=== PATIENT | male | born 1985 | race African-American/Black ===

== ENCOUNTER 2020-05-09 23:32 | Emergency (ER) | payer OTHER, SELFPAY ==
--- NOTE | ~2020-05-09 | XR_ITS ---
EXAMINATION: XR ankle LT min 3V DATE: 05/10/2020 00:05 INDICATION: Anterior and lateral left ankle pain post fall TECHNIQUE: Anteroposterior, oblique, mortise, and lateral views of the left ankle were obtained. COMPARISON: None. FINDINGS: Alignment is normal. No fracture. Joint spaces are well maintained. No ankle joint effusion. Soft t issue swelling about the lateral malleolus and over the dorsal aspect of the midfoot. IMPRESSION: 1. No osseous abnormality. Reviewed, dictated and finalized at location A. R SAW MECHANIC IMPRESSION: 1. No osseous abnormality.
[2020-05-09 23:35] VITALS: BP 142/93; PULSE 97; RESP 15; TEMP 36.6; O2SAT 97
--- NOTE | 2020-05-10 00:51 | ED.LOWEXIN ---
HPI - Extremity Injury (Lower) General Chief Complaint: Extremity Injury, Lower Stated Complaint: twisted ankle Time Seen by Provider: 05/10/20 00:51 Source: patient Mode of arrival: ambulatory Limitations: no limitations History of Present Illness HPI Narrative: The patient is a 34 yo male who presents or evaluation of left ankle pain. 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 He did not fall, no head trauma. He reports pain with ambulation. Denies numbness. Pain is moderate and worse with movement. Related Data Allergies Allergy/AdvReac Type Severity Reaction Status Date / Time No Known Allergies Allergy Verified 05/09/20 23:38 Review of Systems Review of Systems: Narrative: CONSTITUTIONAL: Denies fever CARDIOVASCULAR: Denies chest pain RESPIRATORY: Denies cough or dyspnea. GASTROINTESTINAL: Denies abdominal pain SKIN: Denies rash MUSCULOSKELETAL: Denies back pain, reports left ankle NEUROLOGIC: Denies headache PMFSH Past Medical History Medical History No pertinent past medical history Surgical History Surgical History No pertinent past surgical history Social History Social History (Updated 05/10/20 @ 01:12 by Nancy Noble MD) Smoking status: Never smoker Alcohol intake: current Alcohol use details: social Substance use: never Gender identity (if verbalized by the patient): Male Exam Narrative: Exam Narrative: GENERAL: Awake, alert, conversant HEAD: Normocephalic, atraumatic. EYES: PERRLA and EOMI. ENT: Nares clear, no rhinorrhea or epistaxis. Mucous membranes moist. NECK: Supple. CHEST: No respiratory distress, breathing even and non labored HEART: Regular rate, sinus rhythm ABDOMEN:Non distended, non tender EXTREMITIES: Normal range of motion. Pain with flexion and extension, mild. No ecchymosis, mild edema. Tender to medial aspect. SKIN: Warm, dry, no rash. NEURO:No focal deficits. Alert and oriented x3 Course Vital Signs Vital signs: Vital Signs Temperature 36.6 C 05/09/20 23:35 Pulse Rate 97 05/09/20 23:35 Respiratory Rate 15 05/09/20 23:35 Blood Pressure 142/93 H 05/09/20 23:35 Pulse Oximetry 97 05/09/20 23:35 Temperature 36.6 C 05/09/20 23:35 Pulse Rate 97 05/09/20 23:35 Respiratory Rate 15 05/09/20 23:35 Blood Pressure 142/93 H 05/09/20 23:35 Pulse Oximetry 97 05/09/20 23:35 MDM - Extremity Injury (Lower) MDM Narrative Medical decision making narrative: Patient presented for evaluation of left ankle pain. At the time of assessment, patient is ambulatory. Neurologically intact. Neurovascularly intact. Patient is ambulatory. No significant deformity. Patient with negative x-ray imaging, will be discharged home in stable condition. Differential Diagnosis Differential diagnosis: Likely ankle sprain and strain and ankle fracture Imaging Data My impression: Left ankle: No acute osseous abnormality, no fracture or dislocation Discharge Plan Discharge Clinical Impression: Ankle sprain and strain Patient Disposition: Home, Self-Care Condition: Stable Instructions: Ankle Sprain (ED) Additional Instructions: You do not have any evidence of any broken bones or dislocation in your ankle. This is likely an ankle sprain and will resolve in 10 to 14 days. Please rest, ice and elevate the extremity is much as possible. You may experience some swelling, swelling is not dangerous. Please take anti-inflammatories such as Tylenol and ibuprofen. Please contact your primary care physician for follow up from this visit. If you experience worsening pain, vomiting that does not stop, bleeding complications, chest pain, shortness of breath, inability to tolerate your medications please return for reassessment. Take any prescribed medications Stay well-hydrated For fever and
== END 2020-05-10 02:04 | disposition home or self-care (01) ==
LOC: ANHED 05-10 01:27
PROVIDERS: Emergency Provider Emergency Medicine; PCP Nurse Practitioner Family
DX: S93.402A Sprain of unspecified ligament of left ankle, initial encounter (principal); S96.912A Strain of unspecified muscle and tendon at ankle and foot level, left foot, initial encounter; X50.9XXA Other and unspecified overexertion or strenuous movements or postures, initial encounter
CPT/HCPCS: 73610; 99283

== ENCOUNTER 2021-01-10 09:25 | Emergency (ER) | payer BC, SELFPAY ==
--- NOTE | ~2021-01-10 | XR_ITS ---
EXAMINATION: XR chest 2V DATE: 01/10/2021 10:20 INDICATION: Cough and fever TECHNIQUE: PA and lateral views of the chest are obtained. COMPARISON: None available FINDINGS: There are minimal airspace opacities lower lung zones. There is no pleural effusion or pneu mothorax. The cardiomediastinal silhouette is normal. The visualized bones and soft tissues are unrem arkable. IMPRESSION: 1. Minimal airspace opacities of the lower lung zones, consistent with atelectasis versus pneumonia. Reviewed, dictated and finalized at location A. IMPRESSION: 1. Minimal airspace opacities of the lower lung zones, consistent with atelecta sis versus pneumonia.
[2021-01-10 09:47] VITALS: BP 115/62; PULSE 104; RESP 20; TEMP 39.3; O2SAT 99
[2021-01-10 10:49] LABS: Basophils Percent Auto 0.2 % (0.2-1.2); Hematocrit 42.8 % (42.0-52.0); Hemoglobin 14.1 g/dL (14.0-18.0); Immature Granulocyte Absolute 0.03 K/mm3 (0.00-0.031); Immature Granulocyte Percent A 0.6 % (0-0.5); Lymphocytes Absolute Auto 1.22 K/mm3 (0.9-3.2); Lymphocytes Percent Auto 22.6 % (18.3-44.2); Mean Corpuscular HGB Conc 32.9 g/dl (32-36); Mean Corpuscular Hemoglobin 28.8 pg (26-34); Mean Corpuscular Volume 87.5 fl (80-100); Mean Platelet Volume 9.9 fl (7.4-10.4); Monocytes Absolute Auto 0.3 K/mm3 (0.1-0.6); Neutrophils Absolute Auto 3.9 K/mm3 (1.3-6.7); Neutrophils Percent Auto 71.6 % (45.5-73.1); Platelet Count Result 226 k/mm3 (150-375); Red Blood Count 4.89 M/mm3 (4.6-6.20); White Blood Count 5.4 K/mm3 (4.5-10.0)
[2021-01-10 10:52] LABS: Add Urine Microscopic? YES; Appearance Urine Clear (Clear); Bilirubin Urine Negative (Negative); Blood Urine Negative (Negative); Color Urine Yellow (Yellow); Glucose Urine UA 3+ mg/dL (Negative); Ketones Urine 1+ mg/dL (Negative); Leukocyte Esterase Ur Negative LEU/UL (Negative); Nitrate Urine Negative (Negative); Protein Urine 2+ mg/dL (Negative); RBC Urine 0-2 /hpf (0-2); WBC Urine 0-3 /hpf
[2021-01-10 11:00] LABS: INR 0.9; Prothrombin Time 12.2 Seconds (11.1-14.7)
[2021-01-10 11:01] LABS: Partial Thromboplastin Time 28.4 SECONDS (22.3-36.8)
[2021-01-10 11:04] LABS: Lactic Acid Reflex 1.2 mmol/L (0.7-2.1)
[2021-01-10 11:07] LABS: Alanine Aminotransferase 34 U/L (4-50); Albumin Level 4.1 g/dL (3.5-5.1); Alkaline Phosphatase 115 U/L (38-126); Anion Gap 7 mmol/L (8-16); Aspartate Amino Transferase 46 U/L (17-59); Bilirubin,Total 0.7 mg/dL (0.2-1.3); Blood Urea Nitrogen 11 mg/dL (9-20); CRP 4.2 mg/dL (<1.0); Calcium 9.5 mg/dL (8.4-10.2); Carbon Dioxide 26 mmol/L (22-30); Chloride 98 mmol/L (98-107); Estimated CRCL calculation 88 ml/min; Estimated Glomerular Filt Rate > 60; Glucose 332 mg/dL (65-110); Potassium 4.1 mmol/L (3.4-5.0); Sodium 131 mmol/L (137-145)
[2021-01-10 11:11] LABS: Specific Grav Ur 1.035 (1.001-1.035)
[2021-01-10 12:46] VITALS: BP 120/48; PULSE 97; RESP 18; TEMP 38; O2SAT 96
[2021-01-10] MEDS: ONDANSETRON INJ 4 MG/2 ML VIAL IV PUSH (14:05)
[2021-01-10] MEDS: BENZONATATE 100 MG CAPSULE PO (14:05)
[2021-01-10] MEDS: SODIUM CHLORIDE 0.9% IV 1,000 ML 999 ML IV CONT (14:05)
[2021-01-10] MEDS: ACETAMINOPHEN 500 MG TABLET 1000 MG PO (14:05)
--- NOTE | 2021-01-10 15:43 | ED.FEVER ---
HPI - Fever General Chief Complaint: Fever Stated Complaint: abdominal pain Time Seen by Provider: 01/10/21 13:26 History of Present Illness HPI Narrative: Patient presents with fever for the past few days. Is been associated with cough, congestion and body aches. Also reports some mild nausea and a stomachache. Denies any vomiting diarrhea sputum production. Reports mild shortness of breath. Patient is currently may have Covid but is unsure where he may have contracted it from Related Data Allergies Allergy/AdvReac Type Severity Reaction Status Date / Time No Known Allergies Allergy Verified 01/10/21 09:52 Review of Systems Review of Systems: CONSTITUTIONAL: Denies fever, chills, or sweats. EYES: Denies visual changes, redness, or discharge. ENT: Denies rhinorrhea, congestion, sore throat, or otalgia. CARDIOVASCULAR: Denies chest pain, palpitations, or edema. RESPIRATORY: Reports cough and shortness of breath GASTROINTESTINAL: Denies vomiting, or diarrhea. GENITOURINARY: Denies dysuria or hematuria. SKIN: Denies rash or itching. MUSCULOSKELETAL: Denies back pain, focal joint pain. NEUROLOGIC: Denies headache, numbness, dizziness, or weakness. PSYCHIATRIC: Denies anxiety or depression. All systems reviewed & are unremarkable except as noted in HPI and below PMFSH Past Medical History Medical History No pertinent past medical history Surgical History Surgical History No pertinent past surgical history Social History Social History Smoking status: Never smoker Alcohol intake: current Alcohol use details: social Substance use: never Gender identity (if verbalized by the patient): Male Exam Narrative: GENERAL: Well-appearing, well-nourished, and in no acute distress. HEAD: Normocephalic, atraumatic. EYES: PERRLA and EOMI. ENT: Nares clear, no rhinorrhea or epistaxis. Mucous membranes moist. NECK: Supple. No masses. No JVD CHEST: Clear to auscultation. No respiratory distress. No wheezes rales or rhonchi HEART: Regular rate and rhythm. No murmur heard. Normal peripheral pulses. ABDOMEN: Soft, nontender, nondistended, normal active bowel sounds. EXTREMITIES: Normal range of motion. No edema. SKIN: Warm, dry, no rash. NEURO: No focal deficits. Alert and oriented x3. PSYCH: Normal mood and affect. Course Reevaluation(s) Reevaluation #1: Patient reports feeling improved results and plan reviewed with patient is comfortable with outpatient plan. Date: 01/10/21 Time: 15:44 Vital Signs Vital signs: Vital Signs Temperature 39.3 C H 01/10/21 09:47 Pulse Rate 104 H 01/10/21 09:47 Respiratory Rate 20 01/10/21 09:47 Blood Pressure 115/62 01/10/21 09:47 Pulse Oximetry 99 01/10/21 09:47 Temperature 36.8 C 01/10/21 16:07 Pulse Rate 66 01/10/21 16:07 Respiratory Rate 16 01/10/21 16:07 Blood Pressure 124/77 01/10/21 16:07 Pulse Oximetry 100 01/10/21 16:07 MDM - Fever MDM Narrative Medical decision making narrative: H&P as above, vs initially with fever and tachycardia, pt looks clinically well, exam reassuring, labs reassuring img with possible pneumonia, additional labs/img considered, symptomatic relief available as needed, on reevaluation pt continues to looks clinically well. Suspect Covid pneumonia, dns severe sepsis, severe dehydration, hypoxia. plan to tx/monitor as op w/ pcm f/u findings/plan discussed with pt, pt agree/comfortable with plan, return precautions given Lab Data Result diagrams: 01/10/21 10:38 01/10/21 10:38 Labs: Lab Results 01/10/21 01/10/21 01/10/21 Range/Units 10:38 10:38 10:38 WBC 5.4 (4.5-10.0) K/mm3 RBC 4.89 (4.6-6.20) M/mm3 Hgb 14.1 (14.0-18.0) g/dL Hct 42.8 (42.0-52.0) % MCV 87.5 (80-100) fl MCH 28.8 (26-34
[2021-01-10 16:07] VITALS: BP 124/77; PULSE 66; RESP 16; TEMP 36.8; O2SAT 100
[2021-01-11 18:31] LABS: SARS-CoV-2 RNA PCR Positive
== END 2021-01-10 16:10 | disposition home or self-care (01) ==
PROVIDERS: Emergency Medicine; Emergency Provider Emergency Medicine; PCP Nurse Practitioner Family
DX: U07.1 COVID-19 (principal); J12.82 Pneumonia due to coronavirus disease 2019
CPT/HCPCS: 36415; 71046; 80053; 81001; 83605; 85025; 85610; 85730; 86140; 87040; 96361; 96374; 99284; A9270; C9803; J2405; J7030; U0003; U0005

== ENCOUNTER 2021-01-13 15:23 | Inpatient (IN) | payer BC, SELFPAY ==
[2021-01-13] VITALS (11 sets, daily range): BP systolic 110–153; BP diastolic 66–95; PULSE 88–110; RESP 18–30; TEMP 36.9; O2SAT 92–100
--- NOTE | ~2021-01-13 | CT_ITS ---
EXAMINATION: CTA chest PE protocol DATE: 01/13/2021 17:56 INDICATION: Shortness of breath, elevated d-dimer. Covid-positive. TECHNIQUE: Computed tomography angiography (CTA) of the chest was performed with 100 mL Omnipaque-350 intravenous contrast timed to evaluate the pulmonary arteries. Coronal maximum intensity projection 3D-reconstructions were created by the technologist. Automated exposure control and iterative reconst ruction technique were employed. Exam dose: 459.78 mGy-cm total exam DLP. COMPARISON: 01/13/2021 portable AP chest 01/10/2021 2 view chest FINDINGS: There is diagnostic contrast enhancement of the pulmonary arteries and no evidence of pulmo nary embolism. No thoracic aortic aneurysm or dissection. Normal heart size. No pericardial effusion. Slight pleural effusions. There is mild hilar and mediastinal lymph node prominence, likely reactive. Extensive bilateral patch y groundglass infiltrates are noted involving particularly the right upper lobe, middle lobe, lingula and both lower lobes. Included skeletal structures are unremarkable. IMPRESSION: No evidence of pulmonary embolism Extensive bilateral pulmonary infiltrates consistent with Covid pneumonia Reviewed, dictated and finalized at Location [facility]. Reviewed, dictated and finalized at location A.
--- NOTE | ~2021-01-13 | XR_ITS ---
EXAMINATION: XR chest 1V portable DATE: 01/13/2021 16:06 INDICATION: Shortness of breath. COVID-19 positive. TECHNIQUE: A single frontal view of the chest was obtained. COMPARISON: Chest 2 views 01/10/2021 FINDINGS: There are patchy airspace opacities in all right lung zones and in left mid and lower lung zones. No pleural effusion or pneumothorax. The heart size is normal. IMPRESSION: 1. Worsened diffuse lung disease, consistent with COVID-19 pneumonia. Reviewed, dictated and finalized at location B.
--- NOTE | 2021-01-13 15:47 | ECG_ITS ---
Measurements Intervals [place] Rate: 0 P: ID: 0 QRS: QRSD: 0 T: QT: 0 QTc: 0 Interpretive Statements SINUS RHYTHM BORDERLINE T WAVE ABNORMALITY- INFERIOR LEADS BASELINE ARTIFACT- I, II, III, AVR, V2-V6 BORDERLINE ECG Electronically Signed On 01-13-2021 15:54:13 CDT by Jatinder Mariscal D.O.
--- NOTE | 2021-01-13 16:46 | PC.NURSE ---
called lab to add on Trop @[id number]
[2021-01-13 16:53] LABS: Basophils Percent Auto 0.2 % (0.2-1.2); Hematocrit 40.5 % (42.0-52.0); Hemoglobin 13.1 g/dL (14.0-18.0); Immature Granulocyte Absolute 0.03 K/mm3 (0.00-0.031); Immature Granulocyte Percent A 0.5 % (0-0.5); Lymphocytes Percent Auto 25.5 % (18.3-44.2); Mean Corpuscular HGB Conc 32.3 g/dl (32-36); Mean Corpuscular Hemoglobin 28.9 pg (26-34); Mean Corpuscular Volume 89.2 fl (80-100); Mean Platelet Volume 10.1 fl (7.4-10.4); Monocytes Absolute Auto 0.3 K/mm3 (0.1-0.6); Monocytes Percent Auto 4.9 % (2.6-8.5); Neutrophils Absolute Auto 4.3 K/mm3 (1.3-6.7); Neutrophils Percent Auto 68.9 % (45.5-73.1); Platelet Count Result 320 k/mm3 (150-375); Red Blood Count 4.54 M/mm3 (4.6-6.20); Red Cell Distribution Width 12.1 % (11.5-14.5); White Blood Count 6.3 K/mm3 (4.5-10.0)
[2021-01-13 17:03] LABS: D Dimer 0.75 ug/mL (<0.48)
[2021-01-13 17:21] LABS: Troponin I < 0.012 ng/mL (0.000-0.034)
[2021-01-13 17:22] LABS: Alanine Aminotransferase 41 U/L (4-50); Alkaline Phosphatase 102 U/L (38-126); Anion Gap 7 mmol/L (8-16); Aspartate Amino Transferase 65 U/L (17-59); Bilirubin,Total 0.5 mg/dL (0.2-1.3); Blood Urea Nitrogen 10 mg/dL (9-20); Calcium 9.1 mg/dL (8.4-10.2); Carbon Dioxide 26 mmol/L (22-30); Chloride 99 mmol/L (98-107); Estimated Glomerular Filt Rate > 60; Glucose 217 mg/dL (65-110); Potassium 4.2 mmol/L (3.4-5.0); Sodium 132 mmol/L (137-145)
--- NOTE | 2021-01-13 17:45 | ED.GENADULT ---
HPI - General Adult General Chief complaint: Upper Respiratory Infection Stated complaint: SOB/COVID+ Time Seen by Provider: 01/13/21 15:23 Source: patient and RN notes reviewed History of Present Illness HPI narrative: Patient is a 35 y/o male complaining of moderate SOB and cough for 1 1/2 weeks. He states that exertion worsens his symptoms. He also has fever and chest pain. He tested positive for COVID 3 days ago. Related Data Allergies Allergy/AdvReac Type Severity Reaction Status Date / Time No Known Allergies Allergy Verified 01/13/21 15:30 Review of Systems Constitutional: Constitutional: Denies chills, Denies fever(s), Denies headache(s) and Denies weakness Eyes: Eyes: Denies blurry vision ENT: Denies headache(s) and Denies neck pain Cardiovascular: Cardiovascular: Reports chest pain and Reports dyspnea Respiratory: Respiratory: Reports cough and Reports dyspnea Gastrointestinal: Gastrointestinal: Denies abdominal pain, Denies diarrhea, Denies nausea and Denies vomiting Genitourinary: Genitourinary: Denies hematuria and Denies dysuria Musculoskeletal: Musculoskeletal: Denies back pain and Denies neck pain Neurologic: Denies headache(s) and Denies weakness PMFSH Past Medical History Medical History No pertinent past medical history Surgical History Surgical History No pertinent past surgical history Social History Social History Smoking status: Never smoker Alcohol intake: current Alcohol use details: social Substance use: never Gender identity (if verbalized by the patient): Male Exam Const: General: no acute distress and well developed Orientation/consciousness: oriented to person, oriented to place, oriented to time and patient oriented x3 HENMT: Head: normocephalic Ears: external ears normal General nose exam: Normal external nose present Eyes: General: appearance normal, both eyes and all related structures Conjunctivae: conjunctivae normal Neck: Neck: normal visual inspection and full ROM Chest: Chest palpation & inspection: normal inspection of the chest and no tenderness Resp: Effort & Inspection: normal respiratory effort Auscultation: clear to auscultation bilaterally Cardio: Rate: regular rate Rhythm: regular rhythm GI: GI Palp: No abdominal tenderness and Yes Soft to palpation Skin: General skin exam: normal color and turgor normal Neuro: General: oriented to person, oriented to place, oriented to time and patient oriented x3 Cognition (Neuro): normal cognition Extrem: General: normal to inspection, full ROM and no pedal edema Psych: Appearance: grossly normal Mental Status: mental status grossly normal Affect: normal affect Course Consultations Consultation #1: Discussed with Dr. Medrano, who agrees to admit. Date: 01/13/21 Time: 20:48 Vital Signs Vital signs: Vital Signs Temperature 36.9 C 01/13/21 15:19 Pulse Rate 96 01/13/21 15:19 Respiratory Rate 20 01/13/21 15:19 Blood Pressure 131/80 01/13/21 15:19 Pulse Oximetry 96 01/13/21 15:19 Temperature 36.9 C 01/13/21 15:19 Pulse Rate 96 01/13/21 20:25 Respiratory Rate 24 H 01/13/21 20:25 Blood Pressure 116/69 01/13/21 20:25 Pulse Oximetry 100 01/13/21 20:25 Medical Decision Making Vital Signs Vital Signs: Vital Signs Temperature 36.9 C 01/13/21 15:19 Pulse Rate 96 01/13/21 15:19 Respiratory Rate 20 01/13/21 15:19 Blood Pressure 131/80 01/13/21 15:19 Pulse Oximetry 96 01/13/21 15:19 Temperature 36.9 C 01/13/21 15:19 Pulse Rate 96 01/13/21 20:25 Respiratory Rate 24 H 01/13/21 20:25 Blood Pressure 116/69 01/13/21 20:25 Pulse Oximetry 100 01/13/21 20:25 Lab Data Result diagrams: 01/13/21 16:16 01/13/21 16:16 Labs: Lab Results
--- NOTE | 2021-01-13 19:15 | PC.NURSE ---
Report given to YEISON Lozano
--- NOTE | 2021-01-13 20:54 | PM.IMHP ---
H&P: HPI History of Present Illness Date/Time: 01/13/21 20:54 Chief Complaint: Cough and shortness of breath Narrative: This is a 35-year-old male with no significant past medical history that presented to the emergency room due to worsening shortness of breath ,cough productive of yellowish sputum, nausea, vomiting, diarrhea, generalized malaise ,fevers and chills ,poor appetite, patient had tested positive for COVID roughly a week ago and had presented to the emergency room 2 days ago due to nausea and vomiting was given Zofran and discharged home however returned to the emergency room due to worsening of symptoms. Preliminary workup was significant for CT PE protocol with diffuse infiltrates but no acute pulmonary emboli. Review of Systems Review of Systems: Patient presented to emergency room due to nausea, vomiting, cough productive of sputum, shortness of breath generalized malaise fevers and chills Constitutional: Constitutional: Reports chills, Reports fever(s) and Reports malaise Eyes: Eyes: Denies change in vision ENT: Denies dysphagia, Denies nasal congestion, Denies nasal discharge and Denies nasal obstruction Cardiovascular: Cardiovascular: Denies irregular heart rhythm, Denies lightheadedness, Denies radiating jaw, neck or arm pain, Denies palpitations and Denies dyspnea on exertion Respiratory: Respiratory: Reports cough, Reports excessive phlegm production and Reports dyspnea Gastrointestinal: Gastrointestinal: Denies abdominal pain, Reports nausea and Reports vomiting Genitourinary: Genitourinary: Reports no additional male genitourinary complaints Musculoskeletal: Musculoskeletal: Reports myalgias Integumentary/Breasts: Skin/Breast: Reports system reviewed and no additional complaints, except as docu Neurologic: Reports system reviewed and no additional complaints, except as documented Psychiatric: Psychiatric: Reports no additional psychiatric complaints Endocrine: Endocrine: Reports no additional endocrine complaints Hematologic/Lymphatic: Hematologic/Lymphatic: Reports no additional hematologic/lymphatic complaints Allergic/Immunologic: Allergic/Immunologic: Reports no additional allergic/immunologic complaints PMFSH Past Medical History Medical History No pertinent past medical history Surgical History Surgical History No pertinent past surgical history Social History Social History Smoking status: Never smoker Alcohol intake: current Alcohol use details: social Substance use: never Gender identity (if verbalized by the patient): Male Meds Home Medications and Allergies Home Medications Medication Instructions Recorded Confirmed Type ondansetron 4 mg PO Q8H PRN #10 tablet 01/10/21 Rx Allergies Allergy/AdvReac Type Severity Reaction Status Date / Time No Known Allergies Allergy Verified 01/13/21 15:30 Vital Signs Vital Signs - 24 hr 01/13/21 15:19 01/13/21 16:30 01/13/21 17:30 Temperature 98.4 F Pulse Rate 96 88 91 Respiratory Rate 20 20 22 H Blood Pressure 131/80 116/83 113/69 Pulse Oximetry 96 96 96 01/13/21 18:30 01/13/21 20:25 Temperature Pulse Rate 89 96 Respiratory Rate 20 24 H Blood Pressure 118/68 116/69 Pulse Oximetry 95 100 Exam Narrative: Laying in [facility] Const: General: cooperative, comfortable, no acute distress, well developed, alert, awake and ill appearing acutely Nutritional Appearance: average body habitus Orientation/consciousness: patient oriented x3 HENMT: Head: normal to inspection, normocephalic and atraumatic Ears: hearing grossly normal bilaterally General nose exam: Normal external nose present Face and sinus: normal facial exam Mouth: Yes Normal oral and palatal mucosa present Eyes: General: appearance normal, both eyes and all related structures
[2021-01-13] MEDS: DEXAMETHASONE SOD PHOS INJ 4 MG/ML VIAL 6 MG IV PUSH (21:01)
[2021-01-13] MEDS: SODIUM CHLORIDE 0.9% IV 250 ML 30 ML IV CONT (22:51)
[2021-01-13 23:28] LABS: INR 0.9
[2021-01-13 23:30] LABS: Alanine Aminotransferase 37 U/L (4-50); Estimated Glomerular Filt Rate > 60
[2021-01-14] VITALS (13 sets, daily range): BP systolic 119–153; BP diastolic 60–86; PULSE 83–101; RESP 18–30; TEMP 35.9–36.8; O2SAT 92–97; BMI 30.6
[2021-01-14] MEDS: REMDESIVIR 200 MG/NS 250 ML 200 MG/250 ML BAG 250 MG IVPB (01:02)
--- NOTE | 2021-01-14 01:30 | PC.NURSE ---
This patient, Jeremiah Brooks, was admitted to 3 [facility] Surg Room 328-01 @0125. Patient/family oriented to hospital policies and general routines including ID bracelet, bed and alarms, visiting hours, pain management, procedures, bathroom and other care routines, personal items, smoking policy, room service/diet, and visiting hours. Information on how to activate the Rapid Response Team has been discussed. Patient/Family are encouraged to report perceived risks to care and to ask questions if they do not understand what they are told or what they should do.
[2021-01-14] MEDS: BENZONATATE 100 MG CAPSULE 200 MG PO (03:10)
[2021-01-14 07:12] LABS: INR 0.9; Prothrombin Time 12.2 Seconds (11.1-14.7)
[2021-01-14 07:21] LABS: Alanine Aminotransferase 36 U/L (4-50); Estimated CRCL calculation 134 ml/min; Estimated Glomerular Filt Rate > 60
--- NOTE | 2021-01-14 07:22 | PM.IMPN ---
Progress Note: A&P Assessment and Plan (1) Pneumonia due to 2019-nCoV: Code(s): U07.1 - COVID-19; J12.82 - Pneumonia due to coronavirus disease 2019 Status: Acute Assessment and Plan: He is symptomatic with shortness of breath. His chest CT does show bilateral airspace disease which is ground-glass opacities. He is not requiring any oxygen but considering lung involvement of will go ahead and start him on dexamethasone 6 mg IV once a day. He is out of the window for remdisivir and will stop it. He does not seem to have any bacterial infection. I will stop azithromycin and ceftriaxone. Will send sputum culture and check procalcitonin level. Incentive spirometry. Encourage activity. Out of bed to chair. I have encouraged him to lie in the prone position or side-lying if tolerated. Oxygen inhalation only if oxygen saturation is less than 90%. (2) DVT prophylaxis: Code(s): Z29.9 - Encounter for prophylactic measures, unspecified Status: Acute Assessment and Plan: I will decrease his Lovenox to once a day dosing. Additional Plan Full code Subjective Date/time seen: 01/14/21 07:22 His symptoms started around 8 with cough and upper respiratory symptoms. He was tested positive for COVID-19 on 01/10. He is still complaining of shortness of breath with exertion on the area. He does have some cough with brownish phlegm. He denied have any chest pain and fever and chills. He denied have any nausea vomiting or abdominal pain. Review of Systems Review of Systems: All systems reviewed & are unremarkable except as noted in HPI and below Exam Narrative: General awake and alert not in acute distress Neck supple CVS S1-S2 no murmur Respiratory no wheezes or crepitation respiration nonlabored GI soft nontender nondistended no hepatosplenomegaly Chest wall no tenderness or deformity Back nontender no deformity MANAGER SAP alert oriented x3 and grossly nonfocal neurological exam Psychiatric cooperative appropriate mood and affect Extremities no edema Objective Data Vital Signs Vital Signs: Vital Signs - 24 hr 01/13/21 15:19 01/13/21 16:30 01/13/21 17:30 Temperature 36.9 C Pulse Rate 96 88 91 Respiratory Rate 20 20 22 H Blood Pressure 131/80 116/83 113/69 Pulse Oximetry 96 96 96 01/13/21 18:30 01/13/21 20:25 01/13/21 20:31 Temperature Pulse Rate 89 96 91 Respiratory Rate 20 24 H 18 Blood Pressure 118/68 116/69 110/66 Pulse Oximetry 95 100 94 01/13/21 20:46 01/13/21 21:46 01/13/21 22:01 Temperature Pulse Rate 93 92 92 Respiratory Rate 22 H 26 H 27 H Blood Pressure 118/70 114/95 H 126/76 Pulse Oximetry 96 92 94 01/13/21 23:17 01/13/21 23:46 01/14/21 00:01 Temperature Pulse Rate 110 H 88 90 Respiratory Rate 21 H 30 H 30 H Blood Pressure 132/88 153/84 H 136/79 Pulse Oximetry 95 93 94 01/14/21 00:16 01/14/21 00:32 01/14/21 01:40 Temperature 36.1 C L Pulse Rate 91 90 89 Respiratory Rate 24 H 29 H 22 H Blood Pressure 153/84 H 123/61 134/86 Pulse Oximetry 95 97 96 01/14/21 02:24 01/14/21 05:24 Temperature 36.8 C Pulse Rate 83 Respiratory Rate 18 18 Blood Pressure 119/60 Pulse Oximetry 96 97 Intake/Output Intake/Output: Intake & Output 01/11/21 01/12/21 01/13/21 01/14/21 23:59 23:59 23:59 23:59 Intake Total 100 350 Balance 100 350 Meds/Results Medications: Active Medications Generic Name Dose Route Start Last Admin Trade Name Freq PRN Reason Stop Dose Admin Albuterol 2 puff 01/14/21 08:00 Albuterol Sulfate (*Sp) Aerosol 1 Puff INHALATION QIDRT JALEESA Benzonatate 200 mg 01/14/21 02:02 01/14/21 03:10 Benzonatate 100 Mg Capsule PO 01/14/21 17:01 200 mg TID PRN Administration Cough Dexamethasone Sodium Phosphate 6 mg 01/14/21 09:00 Dexamethasone Sod Phos Inj 10 Mg/Ml 1 Ml Vial IV PUSH 01/23/21 09:01 DAILY JALEESA Enoxaparin Sodium 40 mg 01/14/21 09:00 Enoxapar
[2021-01-14] MEDS: ENOXAPARIN 40 MG/0.4 ML SYRINGE SUB-Q (08:06)
--- NOTE | 2021-01-14 11:42 | PCRTNOTE ---
Window of time for administration has passed. See next scheduled administration.
[2021-01-14] MEDS: ALBUTEROL SULFATE (*SP) AEROSOL 1 PUFF 2 PUFF INHALATION ×2 (13:05→21:10)
[2021-01-15] VITALS (8 sets, daily range): BP systolic 109–130; BP diastolic 53–76; PULSE 75–92; RESP 14–18; TEMP 36.3–36.9; O2SAT 94–100
[2021-01-15 06:48] LABS: Basophils Percent Auto 0.2 % (0.2-1.2); Hematocrit 36.6 % (42.0-52.0); Hemoglobin 11.8 g/dL (14.0-18.0); Immature Granulocyte Absolute 0.04 K/mm3 (0.00-0.031); Immature Granulocyte Percent A 0.5 % (0-0.5); Lymphocytes Absolute Auto 1.26 K/mm3 (0.9-3.2); Lymphocytes Percent Auto 14.8 % (18.3-44.2); Mean Corpuscular HGB Conc 32.2 g/dl (32-36); Mean Corpuscular Hemoglobin 28.1 pg (26-34); Mean Corpuscular Volume 87.1 fl (80-100); Mean Platelet Volume 9.6 fl (7.4-10.4); Monocytes Absolute Auto 0.7 K/mm3 (0.1-0.6); Monocytes Percent Auto 8.1 % (2.6-8.5); Neutrophils Absolute Auto 6.5 K/mm3 (1.3-6.7); Neutrophils Percent Auto 76.4 % (45.5-73.1); Nucleated Red Blood Cells Perc 0.2 % (0.0-0.2); Platelet Count Result 504 k/mm3 (150-375); Red Cell Distribution Width 11.8 % (11.5-14.5); White Blood Count 8.5 K/mm3 (4.5-10.0)
[2021-01-15 07:17] LABS: Anion Gap 7 mmol/L (8-16); Blood Urea Nitrogen 20 mg/dL (9-20); Calcium 9.5 mg/dL (8.4-10.2); Carbon Dioxide 24 mmol/L (22-30); Chloride 104 mmol/L (98-107); Estimated CRCL calculation 118 ml/min; Estimated Glomerular Filt Rate > 60; Glucose 354 mg/dL (65-110); Potassium 5.1 mmol/L (3.4-5.0); Sodium 135 mmol/L (137-145)
[2021-01-15] MEDS: ENOXAPARIN 40 MG/0.4 ML SYRINGE SUB-Q (08:06)
[2021-01-15] MEDS: ALBUTEROL SULFATE (*SP) AEROSOL 1 PUFF 2 PUFF INHALATION ×3 (09:51→22:18)
[2021-01-15 11:02] LABS: Platelet Estimate Adequate (Adequate)
[2021-01-15 12:26] LABS: Hemoglobin A1C 11.1 % (<5.7)
--- NOTE | 2021-01-15 12:46 | PM.IMPN ---
Progress Note: A&P Assessment and Plan (1) Pneumonia due to 2019-nCoV: Code(s): U07.1 - COVID-19; J12.82 - Pneumonia due to coronavirus disease 2019 Status: Acute Assessment and Plan: He is symptomatic with shortness of breath. His chest CT does show bilateral airspace disease which is ground-glass opacities. He is not requiring any oxygen but considering lung involvement and his symptoms, he was started on dexamethasone 6 mg IV once a day which will be continued. He is out of the window for remdisivir and was stopped. He does not seem to have any bacterial infection. He was initially started on ceftriaxone and azithromycin which was stopped. Will send sputum culture and check procalcitonin level. Incentive spirometry. Encourage activity. Out of bed to chair. I have encouraged him to lie in the prone position or side-lying if tolerated. Oxygen inhalation only if oxygen saturation is less than 90%. I will start him on Tessalon Perles because of his symptoms of significant cough. (2) DVT prophylaxis: Code(s): Z29.9 - Encounter for prophylactic measures, unspecified Status: Acute Assessment and Plan: SubQ Lovenox (3) Diabetes: Code(s): E11.9 - Type 2 diabetes mellitus without complications Status: Acute Assessment and Plan: His blood sugar has been noticed to be consistently elevated. He is on steroid and some of it may be because of steroids. He does have strong family history of diabetes mellitus. I will check hemoglobin A1c. I will put him on insulin sliding scale. Continue to monitor fingerstick sugars. ems educator consult has been requested. He will likely need to be discharged on basal bolus insulin if hemoglobin A1c is elevated. Additional Plan Full code Subjective Date/time seen: 01/15/21 12:46 He is doing well. He is still having shortness of breath on and off with exertion like walking inside the room. He denied have any chest pain. He does complain of significant cough which is mostly dry. He does not have any personal history of diabetes mellitus. He has multiple family member having diagnosis of diabetes mellitus. He does not see a physician on a regular basis. His last lab checks were many years ago. Here he was noticed to have elevated blood sugars. 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 oriented x3 and grossly nonfocal neurological exam Psychiatric cooperative appropriate mood and affect Extremities no edema Objective Data Vital Signs Vital Signs: Vital Signs - 24 hr 01/14/21 13:06 01/14/21 16:00 01/14/21 20:00 Temperature 36.1 C L 35.9 C L Pulse Rate 90 92 Respiratory Rate 20 18 Blood Pressure 130/72 126/70 Pulse Oximetry 93 93 94 01/14/21 21:20 01/14/21 22:00 01/15/21 00:00 Temperature 36.5 C 36.3 C L Pulse Rate 92 80 Respiratory Rate 18 18 Blood Pressure 126/70 118/71 Pulse Oximetry 93 94 100 01/15/21 04:00 01/15/21 06:00 Temperature 36.4 C 36.4 C Pulse Rate 75 78 Respiratory Rate 18 18 Blood Pressure 109/53 L 111/55 L Pulse Oximetry 96 94 Intake/Output Intake/Output: Intake & Output 01/12/21 01/13/21 01/14/21 01/15/21 23:59 23:59 23:59 23:59 Intake Total 100 1650 550 Balance 100 1650 550 Meds/Results Medications: Active Medications Generic Name Dose Route Start Last Admin Trade Name Freq PRN Reason Stop Dose Admin Albuterol 2 puff 01/14/21 08:00 01/15/21 09:51 Albuterol Sulfate (*Sp) Aerosol 1 Puff INHALATION 2 puff QIDRT JALEESA Administration Benzonatate 100 mg 01/15/21 1
[2021-01-15 13:12] LABS: Glucose Point of Care 433 mg/dl (65-105)
[2021-01-15] MEDS: INSULIN ASPART (*BKC) 100 UNITS/ML 10 UNITS SUB-Q ×2 (13:36→19:10)
[2021-01-15] MEDS: BENZONATATE 100 MG CAPSULE PO ×2 (13:37→16:58)
[2021-01-15 18:33] LABS: Glucose Point of Care 423 mg/dl (65-105)
[2021-01-15] MEDS: INSULIN GLARGINE (*BKC) 100 UNITS/ML 13 UNITS SUB-Q (21:27)
[2021-01-15 23:37] LABS: Glucose Point of Care 384 mg/dl (65-105)
[2021-01-16] VITALS (9 sets, daily range): BP systolic 113–128; BP diastolic 60–75; PULSE 72–94; RESP 16–20; TEMP 36.1–36.9; O2SAT 94–99
[2021-01-16 07:11] LABS: Anion Gap 10 mmol/L (8-16); Blood Urea Nitrogen 20 mg/dL (9-20); Calcium 9.3 mg/dL (8.4-10.2); Carbon Dioxide 22 mmol/L (22-30); Chloride 101 mmol/L (98-107); Estimated CRCL calculation 134 ml/min; Estimated Glomerular Filt Rate > 60; Glucose 318 mg/dL (65-110); Potassium 4.5 mmol/L (3.4-5.0); Sodium 133 mmol/L (137-145)
[2021-01-16] MEDS: ALBUTEROL SULFATE (*SP) AEROSOL 1 PUFF 2 PUFF INHALATION ×4 (07:42→21:22)
[2021-01-16 08:05] LABS: Glucose Point of Care 303 mg/dl (65-105)
[2021-01-16] MEDS: INSULIN ASPART (*BKC) 100 UNITS/ML SUB-Q (09:10)
[2021-01-16] MEDS: ENOXAPARIN 40 MG/0.4 ML SYRINGE SUB-Q (09:14)
[2021-01-16] MEDS: BENZONATATE 100 MG CAPSULE PO ×3 (09:15→17:21)
[2021-01-16 12:03] LABS: Glucose Point of Care 401 mg/dl (65-105)
[2021-01-16] MEDS: INSULIN ASPART (*BKC) 100 UNITS/ML 10 UNITS SUB-Q (12:03)
--- NOTE | 2021-01-16 14:57 | PM.IMPN ---
Progress Note: A&P Assessment and Plan (1) Pneumonia due to 2019-nCoV: Code(s): U07.1 - COVID-19; J12.82 - Pneumonia due to coronavirus disease 2019 Status: Acute Assessment and Plan: He is symptomatic with shortness of breath. His chest CT does show bilateral airspace disease which is ground-glass opacities. He is not requiring any oxygen but considering lung involvement and his symptoms, he was started on dexamethasone 6 mg IV once a day which will be continued for total of 5 days. He is out of the window for remdisivir and was stopped. He does not seem to have any bacterial infection. He was initially started on ceftriaxone and azithromycin which was stopped. Will send sputum culture and check procalcitonin level. Incentive spirometry. Encourage activity. Out of bed to chair. I have encouraged him to lie in the prone position or side-lying if tolerated. Oxygen inhalation only if oxygen saturation is less than 90%. Currently he is on room air. Continue him on Tessalon Perles because of his symptoms of significant cough. (2) DVT prophylaxis: Code(s): Z29.9 - Encounter for prophylactic measures, unspecified Status: Acute Assessment and Plan: SubQ Lovenox (3) Diabetes: Code(s): E11.9 - Type 2 diabetes mellitus without complications Status: Acute Assessment and Plan: His blood sugar has been noticed to be consistently elevated. He is on steroid and some of it may be because of steroids. He does have strong family history of diabetes mellitus. His hemoglobin A1c is 11.1. He does seem to have new diagnosis of diabetes mellitus. I will increase the dose of Lantus. I will put him on prandial regular insulin in addition to sliding scale insulin. clinical systems educator consult has been requested. He will likely need to be discharged on basal bolus insulin after diabetic teaching by the RN and clinical systems educator. Additional Plan Full code Subjective Date/time seen: 01/16/21 14:57 He is feeling better. Denied have any significant respiratory symptoms of cough shortness of breath exertional dyspnea or chest pain. His blood sugar is still in 300s and 400s. His insulin is being titrated. His A1c was found to be 11.1. 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 alert oriented x3 and grossly nonfocal neurological exam Psychiatric cooperative appropriate mood and affect Extremities no edema Objective Data Vital Signs Vital Signs: Vital Signs - 24 hr 01/15/21 16:00 01/15/21 20:00 01/15/21 22:00 Temperature 36.6 C 36.6 C 36.6 C Pulse Rate 88 92 76 Respiratory Rate 16 18 18 Blood Pressure 121/76 121/65 116/76 Pulse Oximetry 99 97 96 01/16/21 00:00 01/16/21 04:00 01/16/21 06:00 Temperature 36.9 C 36.4 C L 36.4 C L Pulse Rate 94 80 80 Respiratory Rate 18 18 18 Blood Pressure 113/60 128/62 125/66 Pulse Oximetry 98 98 96 01/16/21 08:00 01/16/21 12:00 Temperature 36.7 C 36.7 C Pulse Rate 85 85 Respiratory Rate 16 16 Blood Pressure 120/63 123/68 Pulse Oximetry 96 97 Intake/Output Intake/Output: Intake & Output 01/13/21 01/14/21 01/15/21 01/16/21 23:59 23:59 23:59 23:59 Intake Total 100 1650 1940 790 Output Total 2 Balance 100 1650 1940 788 Meds/Results Medications: Active Medications Generic Name Dose Route Start Last Admin Trade Name Freq PRN Reason Stop Dose Admin Albuterol 2 puff 01/14/21 08:00 01/16/21 11:52 Albuterol Sulfate (*Sp) Aerosol 1 Puff INHALATION 2 puff QIDRT JALEESA Administration Benzonatate 100 mg 01/15/21 13:00 01/16/21 12:03 Be
[2021-01-16 17:12] LABS: Glucose Point of Care > 500 mg/dl (65-105)
[2021-01-16] MEDS: INSULIN ASPART (*BKC) 100 UNITS/ML 16 UNITS SUB-Q (17:21)
[2021-01-16 18:30] LABS: Glucose Point of Care 473 mg/dl (65-105)
[2021-01-16] MEDS: INSULIN GLARGINE (*BKC) 100 UNITS/ML 22 UNITS SUB-Q (21:57)
[2021-01-16 22:39] LABS: Glucose Point of Care 365 mg/dl (65-105)
[2021-01-17] VITALS (7 sets, daily range): BP systolic 110–122; BP diastolic 52–70; PULSE 61–86; RESP 18–20; TEMP 35.8–36.7; O2SAT 94–99
[2021-01-17 07:11] LABS: Anion Gap 8 mmol/L (8-16); Blood Urea Nitrogen 18 mg/dL (9-20); Calcium 9.5 mg/dL (8.4-10.2); Carbon Dioxide 24 mmol/L (22-30); Chloride 100 mmol/L (98-107); Estimated CRCL calculation 118 ml/min; Estimated Glomerular Filt Rate > 60; Glucose 293 mg/dL (65-110); Potassium 4.4 mmol/L (3.4-5.0); Sodium 132 mmol/L (137-145)
[2021-01-17] MEDS: INSULIN ASPART (*BKC) 100 UNITS/ML SUB-Q ×3 (08:22→17:03)
[2021-01-17] MEDS: INSULIN ASPART (*BKC) 100 UNITS/ML 8 UNITS SUB-Q ×3 (08:23→17:03)
[2021-01-17] MEDS: ENOXAPARIN 40 MG/0.4 ML SYRINGE SUB-Q (08:23)
[2021-01-17] MEDS: BENZONATATE 100 MG CAPSULE PO ×3 (08:24→17:03)
[2021-01-17 08:27] LABS: Glucose Point of Care 290 mg/dl (65-105)
[2021-01-17] MEDS: ALBUTEROL SULFATE (*SP) AEROSOL 1 PUFF 2 PUFF INHALATION ×3 (10:06→16:38)
[2021-01-17 12:30] LABS: Glucose Point of Care 353 mg/dl (65-105)
--- NOTE | 2021-01-17 12:33 | PM.IMPN ---
Progress Note: A&P Assessment and Plan (1) Pneumonia due to 2019-nCoV: Code(s): U07.1 - COVID-19; J12.82 - Pneumonia due to coronavirus disease 2019 Status: Acute Assessment and Plan: He was symptomatic with shortness of breath. His chest CT does show bilateral airspace disease with ground-glass opacities. He is not requiring any oxygen but considering lung involvement and his symptoms, he was started on dexamethasone 6 mg IV once a day which will be continued for total of 5 days. His last dose will be tomorrow at 01/18. He was out of the window for remdisivir and was stopped. He does not seem to have any bacterial infection. He was initially started on ceftriaxone and azithromycin which was stopped. His cultures remain negative. Incentive spirometry. Encourage activity. Out of bed to chair. I have encouraged him to lie in the prone position or side-lying if tolerated. Oxygen inhalation only if oxygen saturation is less than 90%. Currently he is on room air. Continue him on Tessalon Perles because of his symptoms of significant cough. (2) DVT prophylaxis: Code(s): Z29.9 - Encounter for prophylactic measures, unspecified Status: Acute Assessment and Plan: SubQ Lovenox (3) Diabetes: Code(s): E11.9 - Type 2 diabetes mellitus without complications Status: Acute Assessment and Plan: His blood sugar has been noticed to be consistently elevated. He is on steroid. He does have strong family history of diabetes mellitus. His hemoglobin A1c is 11.1. He does seem to have new diagnosis of diabetes mellitus. I will increase the dose of Lantus from 22 units to 26 units. I will put him on prandial regular insulin in addition to sliding scale insulin. hospital educator and dietitian consult has been requested. He will likely need to be discharged on basal bolus insulin after diabetic teaching by the RN and paraeducator. Additional Plan Full code Potentially discharge in a.m. if his blood sugars are adequately controlled. His diabetes control will improve when he is off steroids. Subjective Date/time seen: 01/17/21 12:33 He is feeling better. He denied have any significant shortness of breath. He does have occasional cough but Tessalon Perle is helping him with his symptoms. He is on room air currently. He denied have any fever chills. His fingerstick sugars are still in 300s. 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 x3 and grossly nonfocal neurological exam Psychiatric cooperative appropriate mood and affect Extremities no edema Objective Data Vital Signs Vital Signs: Vital Signs - 24 hr 01/16/21 16:00 01/16/21 20:00 01/16/21 21:25 Temperature 36.6 C 36.1 C L Pulse Rate 86 90 72 Respiratory Rate 16 18 16 Blood Pressure 122/70 118/74 Pulse Oximetry 99 94 01/16/21 22:00 01/17/21 00:00 01/17/21 04:00 Temperature 36.5 C 36.7 C 36.7 C Pulse Rate 90 73 67 Respiratory Rate 20 18 18 Blood Pressure 118/75 119/68 112/62 Pulse Oximetry 95 97 97 01/17/21 06:00 01/17/21 08:00 Temperature 36.2 C L 36.2 C L Pulse Rate 74 74 Respiratory Rate 20 20 Blood Pressure 110/58 L 110/58 L Pulse Oximetry 94 94 Intake/Output Intake/Output: Intake & Output 01/14/21 01/15/21 01/16/21 01/17/21 23:59 23:59 23:59 23:59 Intake Total 1650 1940 2130 1030 Output Total 2 Balance 1650 1940 2128 1030 Meds/Results Medications: Active Medications Generic Name Dose Route Start Last Admin Trade Name Roryq PRN Reason Stop Dose Admin Albuterol 2 puff 01/14/21 08:00 01/17/21 12:22 Albuterol Sulfate (*Sp) Aerosol 1 Puff INHALATION 2 puff QIDRT JALEESA Admini
[2021-01-17 16:54] LABS: Glucose Point of Care 339 mg/dl (65-105)
[2021-01-17] MEDS: INSULIN GLARGINE (*BKC) 100 UNITS/ML 26 UNITS SUB-Q (20:39)
[2021-01-17 21:53] LABS: Glucose Point of Care 343 mg/dl (65-105)
[2021-01-18] VITALS: BP 123/73; PULSE 89; RESP 18; TEMP 36.1; O2SAT 94
[2021-01-18 04:00] VITALS: BP 96/51; PULSE 63; RESP 18; TEMP 35.8; O2SAT 98
[2021-01-18 07:29] LABS: Anion Gap 9 mmol/L (8-16); Blood Urea Nitrogen 18 mg/dL (9-20); Calcium 9.5 mg/dL (8.4-10.2); Carbon Dioxide 24 mmol/L (22-30); Chloride 99 mmol/L (98-107); Estimated CRCL calculation 118 ml/min; Estimated Glomerular Filt Rate > 60; Glucose 226 mg/dL (65-110); Potassium 3.8 mmol/L (3.4-5.0); Sodium 132 mmol/L (137-145)
[2021-01-18 08:51] LABS: Glucose Point of Care 201 mg/dl (65-105)
[2021-01-18] MEDS: INSULIN ASPART (*BKC) 100 UNITS/ML SUB-Q ×3 (09:07→17:44)
[2021-01-18] MEDS: INSULIN ASPART (*BKC) 100 UNITS/ML 8 UNITS SUB-Q ×3 (09:08→17:45)
[2021-01-18] MEDS: ENOXAPARIN 40 MG/0.4 ML SYRINGE SUB-Q (09:10)
[2021-01-18] MEDS: BENZONATATE 100 MG CAPSULE PO ×3 (09:11→17:47)
[2021-01-18] MEDS: ALBUTEROL SULFATE (*SP) AEROSOL 1 PUFF 2 PUFF INHALATION ×4 (09:18→20:29)
[2021-01-18 09:30] VITALS: BP 119/64; PULSE 85; RESP 20; TEMP 35.7; O2SAT 98
[2021-01-18 13:09] LABS: Glucose Point of Care 293 mg/dl (65-105)
[2021-01-18 15:30] VITALS: BMI 30.6
[2021-01-18 16:00] VITALS: BP 137/86; PULSE 105; RESP 18; TEMP 35.8; O2SAT 97
--- NOTE | 2021-01-18 16:05 | PM.IMPN ---
Progress Note: A&P Assessment and Plan (1) Pneumonia due to 2019-nCoV: Code(s): U07.1 - COVID-19; J12.82 - Pneumonia due to coronavirus disease 2019 Status: Acute Assessment and Plan: He was symptomatic with shortness of breath. His chest CT does show bilateral airspace disease with ground-glass opacities. He is not requiring any oxygen but considering lung involvement and his symptoms, he was started on dexamethasone 6 mg IV once a day which will be continued for total of 5 days. His last dose will be tomorrow at 01/18. He was out of the window for remdisivir and was stopped. He does not seem to have any bacterial infection. He was initially started on ceftriaxone and azithromycin which was stopped. His cultures remain negative. Incentive spirometry. Encourage activity. Out of bed to chair. I have encouraged him to lie in the prone position or side-lying if tolerated. Oxygen inhalation only if oxygen saturation is less than 90%. Currently he is on room air. Continue him on Tessalon Perles because of his symptoms of significant cough. 01/18/21 16:05 patient is COVID positive however is not requiring any ox or has any fever, patient presented emergency depart with complaint of abdominal pain nausea or vomiting he was found have a new onset diabetes upon arrival patient blood sugar elevated at 300-400 and hemoglobin A1c of 11.1, patient was started long-acting insulin 26 units in the bed, short-acting insulin 8 units with meals, and will monitor with sliding scale, patient is scheduled to see coding educator, further recommendation to follow, patient may be discharged after seen coding educator and comfortable giving himself insulin injection, I suspect most likely patient is type 2 diabetes and may be oral anti diabetic medication can be added. will continue to monitor (2) DVT prophylaxis: Code(s): Z29.9 - Encounter for prophylactic measures, unspecified Status: Acute Assessment and Plan: SubQ Lovenox (3) Diabetes: Code(s): E11.9 - Type 2 diabetes mellitus without complications Status: Acute Assessment and Plan: His blood sugar has been noticed to be consistently elevated. He is on steroid. He does have strong family history of diabetes mellitus. His hemoglobin A1c is 11.1. He does seem to have new diagnosis of diabetes mellitus. I will increase the dose of Lantus from 22 units to 26 units. I will put him on prandial regular insulin in addition to sliding scale insulin. religious educator and dietitian consult has been requested. He will likely need to be discharged on basal bolus insulin after diabetic teaching by the RN and coding educator. Additional Plan Full code Potentially discharge in a.m. if his blood sugars are adequately controlled. His diabetes control will improve when he is off steroids. Subjective Date/time seen: 01/18/21 16:05 Chief Complaint: Cough and shortness of breath Narrative: This is a 35-year-old male with no significant past medical history that presented to the emergency room due to worsening shortness of breath ,cough productive of yellowish sputum, nausea, vomiting, diarrhea, generalized malaise ,fevers and chills ,poor appetite, patient had tested positive for COVID roughly a week ago and had presented to the emergency room 2 days ago due to nausea and vomiting was given Zofran and discharged home however returned to the emergency room due to worsening of symptoms. Preliminary workup was significant for CT PE protocol with diffuse infiltrates but no acute pulmonary emboli. patient is COVID positive however is not requiring any ox or has any fever, patient presented emergency depart with complaint of abdominal pain nausea or vomiting he was found have a new onset diabetes upon arrival patient blood sugar elevated at 300-400 and hemoglobin A1c of 11.1, patient was started long-acting insulin 26 units in the bed, short-a
[2021-01-18 17:44] LABS: Glucose Point of Care 426 mg/dl (65-105)
[2021-01-18] MEDS: INSULIN GLARGINE (*BKC) 100 UNITS/ML 15 UNITS SUB-Q (17:49)
[2021-01-18 20:00] VITALS: BP 128/72; PULSE 79; RESP 18; TEMP 36.1; O2SAT 99
[2021-01-18] MEDS: metFORMIN HCL 500 MG TABLET PO (21:02)
[2021-01-18] MEDS: INSULIN GLARGINE (*BKC) 100 UNITS/ML 26 UNITS SUB-Q (21:05)
[2021-01-18 21:14] LABS: Glucose Point of Care 469 mg/dl (65-105)
[2021-01-18 23:05] VITALS: BP 116/64; PULSE 62; RESP 18; TEMP 36.4; O2SAT 98
[2021-01-18 23:17] LABS: Glucose Point of Care 331 mg/dl (65-105)
[2021-01-19 06:04] VITALS: BP 117/68; PULSE 71; RESP 14; TEMP 36.1; O2SAT 100
[2021-01-19 08:00] VITALS: BP 124/63; PULSE 95; RESP 16; TEMP 36.1; O2SAT 100; O2SAT 98
[2021-01-19 08:31] LABS: Glucose Point of Care 234 mg/dl (65-105)
[2021-01-19] MEDS: INSULIN ASPART (*BKC) 100 UNITS/ML SUB-Q ×2 (08:36→17:17)
[2021-01-19] MEDS: INSULIN ASPART (*BKC) 100 UNITS/ML 8 UNITS SUB-Q ×3 (08:36→17:16)
[2021-01-19] MEDS: metFORMIN HCL 500 MG TABLET PO ×2 (08:37→17:29)
[2021-01-19] MEDS: BENZONATATE 100 MG CAPSULE PO ×3 (08:37→17:29)
[2021-01-19] MEDS: ENOXAPARIN 40 MG/0.4 ML SYRINGE SUB-Q (08:37)
--- NOTE | 2021-01-19 08:40 | PCCDE ---
diabetes education f/up: called pt [id number]; pt did not watch BG meter video yet. MONITORING: reviewed when to test, BG goals, causes, sx and tx of hypoglycemia and recommended to carry glucose tabs. Assisted pt with sync meter to [employer] for tracking. MEDICATIONS: discussed the addition of Metformin and reviewed when to take and side effects. Reviewed basal bolus insulin regimen again. Pt is nervous about how to use insulin pen. I directed him yesterday to instructions in the Diabetes Management book. DIET: Pt has been seen by RD; reinforced the importance of having 3 balanced meals spaced no more that 4-5 hours apart. Pt works evening/nights. Reassured pt he should take rapid acting insulin before meals. Pt confirms he received email with link yesterday. Sent another link to watch [employer] solostar pen demo. instructed pt to watch both and will call back later this am. called pt again [id number] pt watched the videos and v/u. Sts he feels he understands; I think I have the whole diabetes thing down . Reviewed daily plan for when to take BG, insulin and eat. Pt confirms that he has PCP f/up scheduled for 01/28/21. Recommended he test QID and bring results to PCP visit. Encouraged him to get referral for further OP diabetes training. Discussed how steroids affect BG. Feel that with addition of Metformin, resolution of illness and cessation of steroids pt will see BG trending down. Advised him to notify PCP of hypoglycemia. Pt has DM specialist contact info; encouraged to contact prn.
--- NOTE | 2021-01-19 09:47 | PCRCNOTE ---
Not given. Past window of treatment time.
[2021-01-19] MEDS: ALBUTEROL SULFATE (*SP) AEROSOL 1 PUFF 2 PUFF INHALATION ×2 (09:48→14:43)
[2021-01-19 12:00] VITALS: BP 124/67; PULSE 74; RESP 16; TEMP 36.7; O2SAT 100
[2021-01-19 12:08] LABS: Glucose Point of Care 146 mg/dl (65-105)
[2021-01-19 16:00] VITALS: BP 115/62; PULSE 92; RESP 14; TEMP 37.1; O2SAT 100
--- NOTE | 2021-01-19 16:37 | PM.DS ---
DS: Admitting Diagnosis Admitting Diagnosis covid pneumonia DS: Discharge Diagnosis Discharge Diagnosis (1) Pneumonia due to 2019-nCoV: Code(s): U07.1 - COVID-19; J12.82 - Pneumonia due to coronavirus disease 2019 Status: Acute Assessment and Plan: He was symptomatic with shortness of breath. His chest CT does show bilateral airspace disease with ground-glass opacities. He is not requiring any oxygen but considering lung involvement and his symptoms, he was started on dexamethasone 6 mg IV once a day which will be continued for total of 5 days. His last dose on 01/18. contienu benzonatate prn. He was out of the window for remdisivir and was stopped. and also did not qaulify for remdesivir as he was not hypoxic. He does not seem to have any bacterial infection. He was initially started on ceftriaxone and azithromycin which was stopped. His cultures remain negative. Incentive spirometry. Encourage activity. Out of bed to chair. I have encouraged him to lie in the prone position or side-lying if tolerated. Oxygen inhalation only if oxygen saturation is less than 90%. Currently he is on room air. Continue him on Tessalon Perles because of his symptoms of significant cough. (2) DVT prophylaxis: Code(s): Z29.9 - Encounter for prophylactic measures, unspecified Status: Acute Assessment and Plan: SubQ Lovenox (3) Diabetes: Code(s): E11.9 - Type 2 diabetes mellitus without complications Status: Acute Assessment and Plan: newly diagnosed. worsened with steroid use. discussed options with him. on lantus here along with prandial insulin. a1c came back at 11.1. will continue lantus 26 units bedtime. to keep his rgimen simple, will do prandil oral hypoglycemic agents. will do glipizide 5 mg po bid with meals and metfomrin 1000 mg po bid with meals. he is comfortable with giving himself insulin. seen early childhood services coordinator and dietitian here. providd with information. diabetes supplies sent as well. titrate his medicaitons as op basis. he rach dvised regular follow up for titration with his pcp DS: Summary Hospital Course Hospital Course: see above Time Spent with Patient Time attestation: Total time spent providing and/or coordinating discharge services: 50 mins Exam Narrative: Patient is comfortable, NAD HEENT: eyes are clear and none icteric LUNGS: normal respiratory effort, clear to ausculation bialterally HEART: RR S1S2 ABD: BS+, Soft and nontender Lower extremities: no edema SKIN: nonjaundiced Neuro: grossly intact. DS: Data Data Completed and Pending Labs on day of discharge: Labs from last 24 hours 01/19/21 01/19/21 01/18/21 11:56 08:19 23:08 POC Capillary Glucose 146 H 234 H 331 H 01/18/21 01/18/21 21:00 17:31 POC Capillary Glucose 469 H 426 H Imaging Radiologist's impression: ITS Impressions Chest X-Ray 01/13/21 16:13 IMPRESSION: 1. Worsened diffuse lung disease, consistent with COVID-19 pneumonia. Chest CTA 01/13/21 18:13 IMPRESSION: No evidence of pulmonary embolism Extensive bilateral pulmonary infiltrates consistent with Covid pneumonia Discharge Plan Discharge Attending physician on discharge: Zuhair Hanley Discharging Clinician: Zuhair Hanley Anticipated Discharge Date/Time: 01/19/21 16:28 Patient Disposition: Home, Self-Care Activity: as tolerated Diet: diabetic Discharge Instructions: accuchecks before meals and at bedtime Patient Instructions: Antibiotic Form, Type 2 Diabetes in Adults: New Diagnosis (GEN), Basic Carbohydrate Counting (DC), COVID-19 (Coronavirus Disease 2019) (DC) Stand Alone Forms: General Discharge Information, Work/School Release IP Follow-up/Referrals: Freddy,SALLY Lopez [Primary Care Provider] - 1 Week Discharge Medications: New (DME) blood-glucose meter Kit See Rx Instructions .Route Qty: 1 RF: 0 (DME)
[2021-01-19 19:02] LABS: Glucose Point of Care 226 mg/dl (65-105)
== END 2021-01-19 18:35 | disposition home or self-care (01) | DRG 137 ==
LOC: ANHED 20:59 → ANH3MEDSUR 01-14 00:35
PROVIDERS: Admitting Provider Internal Medicine; Emergency Provider Emergency Medicine; PCP Nurse Practitioner Family; Visit Provider Internal Medicine Critical Care Medicine
DX: U07.1 COVID-19 (principal); J12.82 Pneumonia due to coronavirus disease 2019; E11.9 Type 2 diabetes mellitus without complications; T38.0X5A Adverse effect of glucocorticoids and synthetic analogues, initial encounter
CPT/HCPCS: 36415; 71045; 71275; 80048; 80053; 82565; 82948; 83036; 84145; 84460; 84484; 85025; 85380; 85610; 86900; 86901; 93005; 94640; 96365; 96367; 96372; 96374; 96375; 99285; A9270; G0378; G0379; J0456; J0696; J1100; J1650; J1815; J7050; Q9967